=== PATIENT | male | born 1990 | race Caucasian/White ===

== ENCOUNTER 2016-11-20 10:52 | Emergency (ER) | payer OTHER ==
[2016-11-20 11:07] VITALS: RESP 16; TEMP 97.9
[2016-11-20] MEDS ORDERED: LORazepam 1 MG TAB PO ONE (11:30)
--- NOTE | 2016-11-20 11:33 | EDPHY ---
H & P Time Seen by Provider: 11/20/16 11:20 HPI/ROS: CHIEF COMPLAINT: Acute anxiety and syncopal episode during blood draw HISTORY OF PRESENT ILLNESS: 26-year-old male complaining of acute anxiety and panic attack. He has been experiencing increasing stress over the past 5 weeks related to work and relationship issues. He was at his primary care provider today after having fasted for 12 hours for a blood draw and during his blood draw had a syncopal episode which further triggered anxiety including hyperventilation, carpal pedal spasms. He took Ativan 0.5 mg and notes slight decrease in symptoms although he notes continued anxiety is requesting further Ativan. No history of daily Ativan use. No suicidal homicidal ideation. No chest pain. No dyspnea. PRIMARY CARE PROVIDER: Marjorie meeks REVIEW OF SYSTEMS: A ten point review of systems was performed and is negative with the exception of the items mentioned in the HPI PAST MEDICAL & SURGICAL HISTORY: No pertinent medical or surgical history SOCIAL HISTORY: No drug use PHYSICAL EXAM (Prior to examination, patient consented to physical exam, hands were washed and my usual and customary physical exam procedures followed) 1) GENERAL: Well-developed, well-nourished, alert and oriented. Appears anxious 2) HEAD: Normocephalic, atraumatic 3) HEENT: Pupils equal, round, reactive to light bilaterally. Sclera anicteric. 4) NECK: Full range of motion, no meningeal signs. 5) LUNGS: Clear auscultation bilaterally, no wheezes, no rhonchi, no retractions. 6) HEART: Regular rate and rhythm, no murmur, no heave, no gallop. 7) ABDOMEN: No guarding, no rebound, no focal tenderness, negative McBurney's, negative Serna's, negative Rovsing's, negative peritoneal sign, 8) MUSCULOSKELETAL: Moving all extremities, no focal areas of tenderness, no obvious trauma. No peripheral edema or discoloration. 9) BACK: No CVA tenderness, no midline vertebral tenderness, no fluctuance, no step-off, no obvious trauma, no visual or palpable abnormality. 10) SKIN: No rash, no petechiae. 11) Psychiatric: Patient is oriented X 3, there is no agitation. 12) NEURO: Awake, alert, and oriented to person, place and time. Answers questions appropriately. There were no obvious focal neurologic abnormalities. No cerebellar dysfunction. Normal steady gait. Upper and lower extremities bilaterally with strength 5 / 5, reflexes 2+. DIFFERENTIAL DIAGNOSIS: in no particular include but not limited to cardiac arrhythmia acute anxiety, suicidal ideations Smoking Status: Never smoked Constitutional: Initial Vital Signs Temperature (C) 36.6 C 11/20/16 10:52 Heart Rate 78 11/20/16 10:52 Respiratory Rate 16 11/20/16 10:52 Blood Pressure 123/94 H 11/20/16 10:52 O2 Sat (%) 95 11/20/16 10:52 O2 Delivery Mode Room Air Allergies/Adverse Reactions: Penicillins Allergy (Unknown, Verified 04/22/11 05:29) Home Medications: Medication Instructions Recorded LORazepam [Ativan] 0.5 mg PO 04/22/11 MDM/Departure - MDM Medications Given: Discontinued Medications Lorazepam (Ativan) 1 mg PO EDNOW ONE Stop: 11/20/16 11:31 Last Admin: 11/20/16 11:33 Dose: 1 mg ED Course/Re-evaluation: 12:01 p.m.: Re-evaluation, he is eating, states that he is feeling much better. He would like to go home. I suspect his syncopal episode was combination of acute anxiety and vasovagal syncope during a blood draw. He has since eaten an energy bar. Plan will be discharge. He has a nonfocal exam. Recommend follow up with primary care provider. Usual and customary discharge precautions and instructions provided - Depart Disposition: Home, Routine, Self-Care Clinical Impression: Anxiety attack Condition: Good Instructions: Anxiety (ED) Additional Instructions: Call 911 if you of chest pain, shortness of breath, trouble walking or any other symptoms that concern you. Referrals: Marjorie Meeks MD [Primary Care Provider] - 2-3 days, call for appt.
[2016-11-20 12:17] VITALS: BP 127/78; PULSE 68; O2SAT 94
== END 2016-11-20 12:13 | disposition home or self-care (01) ==
LOC: EDUNIT#
DX: F41.9 Anxiety disorder, unspecified (principal)

== ENCOUNTER 2017-02-28 16:01 | Emergency (ER) | payer OTHER ==
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
[2017-02-28 17:58] LABS: COLOR YELLOW; LEUKOCYTE ESTERASE,URINE NEGATIVE (NEGATIVE); NITRITE,URINE NEGATIVE (NEGATIVE)
[2017-02-28 18:07] LABS: MUCUS TRACE /lpf (NONE-1+); RBC,URINE NONE SEEN /hpf (0-3)
[2017-02-28 18:28] VITALS: BP 117/72; PULSE 81; RESP 18; TEMP 98.1; O2SAT 96
[2017-03-02 06:54] LABS: CHLAMYDIA AMPLIFICATION GENPRB NEGATIVE (NEGATIVE)
== END 2017-02-28 18:27 | disposition home or self-care (01) ==
DX: N50.811 Right testicular pain (principal)